=== PATIENT | male | born 1985 | race Caucasian/White ===

== ENCOUNTER 2017-08-29 | Emergency (ER) | payer MEDICAID, OTHER ==
[~2017-08-29] VITALS: Ht 180.3 cm; Wt 87.0 kg
[~2017-08-29] MED LIST: none reported
[2017-08-29 00:25] VITALS: BP 116/74
== END 2017-08-29 04:58 | disposition home or self-care (01) ==
LOC: ER 04:38
DX: R21 Rash and other nonspecific skin eruption (principal); L29.9 Pruritus, unspecified
CPT/HCPCS: 99282